=== PATIENT | female | born 1950 | race Two or more races ===

== ENCOUNTER 2024-03-09 13:27 | Outpatient (AMB) | payer MEDICARE, SELFPAY ==
--- NOTE | 2024-03-09 13:36 | ORTHONT_ITS ---
Vital signs 03/09/24 13:37 Height 1.57 m Height Method Stated Weight 70.959 kg Weight Measurement Method Standing Scale BMI 28.8 BP 147/92 H Blood Pressure Source Automatic Cuff Blood Pressure Location Right Upper Arm Position Sitting Respiration 18 Pulse 83 Pulse Source Monitor Temp 97.4 F Temp Source Temporal Artery Scan Pulse Oximetry (%) 96 Oxygen Delivery Method Room Air Med/Allergies Allergies & Medications Allergies No Known Allergies Allergy (Verified 03/09/24 13:38) Medication Reconciliation semaglutide 2 mg/dose (8 mg/3 mL) subcutaneous pen injector (Ozempic) 2 mg subcut QWEEK 11/11/23 [History Confirmed 03/09/24] atorvastatin 10 mg tablet 10 mg PO QDAY 11/22/23 [History Confirmed 03/09/24] empagliflozin 10 mg tablet (Jardiance) 10 mg PO QDAY 11/22/23 [History Confirmed 03/09/24] furosemide 10 mg/mL oral solution 10 mg PO QDAY 11/22/23 [History Confirmed 03/09/24] metformin 500 mg tablet 500 mg PO BID 12/16/23 [History Confirmed 03/09/24] potassium chloride 10 mEq tablet,extended release 10 meq PO DAILY 12/16/23 [History Confirmed 03/09/24] acetaminophen 500 mg tablet (Acetaminophen Extra Strength) 1,000 mg (2 x 500 mg) PO Q6H PRN pain #90 tabs 12/21/23 [Rx Confirmed 03/09/24] aspirin 81 mg tablet,delayed release 81 mg PO BID #60 tabs 12/21/23 [Rx Confirmed 03/09/24] doxycycline hyclate 100 mg tablet 100 mg PO BID #14 tabs 12/21/23 [Rx Confirmed 03/09/24] gabapentin 300 mg capsule 300 mg PO .qhs #30 caps 12/21/23 [Rx Confirmed 03/09/24] sennosides 8.6 mg-docusate sodium 50 mg tablet (Senna-S) 1 tab-cap PO QDAY #30 tabs 12/21/23 [Rx Confirmed 03/09/24] oxycodone 5 mg tablet 5 mg PO Q6H PRN pain #14 tabs 01/03/24 [Rx Confirmed 03/09/24] naproxen 500 mg tablet 500 mg PO BID #30 tabs 03/09/24 [Rx] Subjective Visit Visit for: follow up visit and knee Immunization / Flu Flu Vaccine in the Last 12 Months: No Flu Vaccine Exclusion Criteria: No Exclusion Criteria History of Present Illness Chief complaint: FOLLOW UP VISIT Susanne is doing well 10-week status post total knee replacement. She is very happy with her progress Personal History Occupation: RETIRED Red flag PMH: none Pain Pain level (0-10): 1 Pain duration: COMES AND GOES Pain location: anterior Pain quality: sharp Associated signs & symptoms: none Ambulatory data Ambulatory device: none Treatments Improvement with previous injections: No Improvement with PT: No Improvement with NSAIDS: n/a Review of Systems Review of Systems: All systems negative unless otherwise noted in HPI. Exam Exam Patient is in no acute distress and is cooperative with the examination today. Patient has a normal mood and affect. Breathing is nonlabored. In no respiratory distress. Bilateral extremities were evaluated and demonstrates sensation intact to light touch. Palpable pedal pulses are present. No significant edema is present. Right knee incision is clean dry and intact. Range of motion is 0 to 110 degrees Assessment and Plan Problem List (1) Degenerative arthritis of knee, bilateral: Status: Acute Plan: Patient is doing well status post right total knee replacement. She reports her left knee is bothering her and she is severe arthritis. She would like a cortisone injection of her left knee which I think is reasonable. She also has with right hip trochanteric bursitis and would like an injection. We also going to send her anti-inflammatories Recommend hip bursa cortisone injection as patient would like to proceed with conservative treatment at this time. The risks and benefits of the procedure were reviewed with the patient and patient gave verbal consent to continue with the procedure. Procedure: performed by Dr. Bass Using sterile technique the right hip bursa was thoroughly prepped with alcohol prep, and approximately 1 cc of Kenalog 40 mg/mL and 4 cc of 1% Lidocaine was injected without resistance. The patient tolerated the procedure well. Recommend knee cortisone injection as patient would like to proceed with conservative treatment at this time. The risks and benefits of the procedure were reviewed with the patient and patient gave verbal consent to continue with the procedure. Procedure: performed by Dr. Bass Using sterile technique the left knee was thoroughly prepped with alcohol, and approximately 1 cc of Kenalog 40 mg/mL and 4 cc of 1% lidocaine was injected without resistance into the medial tibial femoral joint space. The patient tolerated the procedure. Advanced Care Planning Discussion Advance care planning discussed with:: patient Office Procedures GNS Level of Care Nursing/Assessment Patient Status: Established Patient Nursing Assessment/Reassesment: Medication Reconciliation, Update PMH in EMR and Vital Signs Coordination of Care: Complex Care and Chronic Disease 1-5, Education Complex Pt/Fam, Consent,records obtained, informed consent, Results/Orders obtained and Staff clarify orders Established Patient Charge Established Patient Point Assignment: 95 Established Patient Point Charge: EP Level 3 (80-115) Surgical Proc/IM SQ injection Major Surgical Procedure: Yes (RIGHT HIP/LEFT KNEE) Medication Given Medication Given Medication Given: Yes Documented Dose Given: 8 Route: Infiitration Medication Given Medication Given Medication Given: Yes Documented Dose Given: 2 Route: Infiitration Office Meds Xylocaine 10 mg/mL (1 %) injection solution Performing Provider: Luiz Bass MD Performing Location: [facility] Administered by: Luiz Bass MD on 03/09/24 14:21 Dose Route Admin Location Dispensed Lot Number Expiration Date FORMERLY NAMED [facility] [employer] 40 mL Infiltration 40 mL [id number] 01/12/27 26161-091-61 [facility] triamcinolone acetonide 40 mg/mL suspension for injection Performing Provider: Luiz Bass MD Performing Location: [facility] Administered by: Luiz Bass MD on 03/09/24 14:21 Dose Route Admin Location Dispensed Lot Number Expiration Date FORMERLY NAMED [facility] [employer] 80 mg Infiltration 2 mL [id number] 12/12/25 [address]-6 [employer] Past Medical History Past Medical History Have you ever been diagnosed with any of the following: Neurological Problems Transient Ischemic Attacks (TIA): No Seizures: No Cardiology Problems Heart Murmur: Yes Hypercholesterolemia: Yes Congestive Heart Failure: No Edema: Yes (left ankle) Hypertension: Yes Respiratory Problems Chronic Obstructive Pulmonary Disease (COPD): No Smoking: Yes Smoking Cessation Counseling: No Smoking Exposure: Yes Stomache/Intestinal Problems Hepatitis: No Obesity: Yes Genital/Urinary Problems Renal Disease: No Reproductive Problems Endometriosis: No Previous Pregnancies: Yes Musculoskeletal Problems Arthritis: Yes Osteoporosis: Yes Fractures: Yes (left ankle, right foot, nose, right wrist) Head,Eye,Nose,Throat Problems Cataracts: Yes Endocrine Problems Diabetes Mellitus Type 1: No Diabetes Mellitus Type 2: Yes Hypothyroidism: No Blood Problems Anemia: No Clotting Problems: No Other Problems Hospitalization: Yes (Sepsis, UTI) Shingles: No Falls: No Blood Transfusions: No Anesthesia Reactions: No Chicken Pox: Yes Measles: Yes Cancer: No Surgical History Total Knee Replacement: Yes
[2024-03-09 13:37] VITALS: BP 147/92; PULSE 83; RESP 18; TEMP 36.3; O2SAT 96; BMI 28.8
== END 2024-03-09 14:06 | disposition home or self-care (01) ==
LOC: HODSRG 13:27
PROVIDERS: PCP Specialist; Referring Provider Specialist; Supervising Provider Orthopaedic Surgery Adult Reconstructive Orthopaedic Surgery; Visit Provider Orthopaedic Surgery Adult Reconstructive Orthopaedic Surgery
DX: M17.0 Bilateral primary osteoarthritis of knee (principal); Z96.651 Presence of right artificial knee joint; M70.61 Trochanteric bursitis, right hip; I10 Essential (primary) hypertension; E78.00 Pure hypercholesterolemia, unspecified
CPT/HCPCS: 20610; 99213; J3301; J3490; G0463

== ENCOUNTER → 2024-04-16 | Outpatient (CLI) | payer MEDICARE, SELFPAY ==
--- NOTE | 2024-04-16 16:00 | XR_ITS ---
Examination: Thyroid sonography complete TECHNIQUE: Multiple high resolution grayscale sonographic images thyroid lobes are carful analysis Exam date and time: April 16, 2024 1559 hours INDICATIONS: Palpable nodule in the neck this month FINDINGS: Right thyroid 5.5 x 1.7 x 2.8 cm Upper pole vascular nodule 14 x 10 x 9 mm Upper pole cyst 3 x 3 mm Lower pole nodule 8 x 6 x 7 mm Isthmus nodule 1.1 x 0.9 x 1.0 cm Left thyroid 5.7 x 2.0 x 2.2 cm Upper pole nodules 7 x 4 x 6 mm, 6 x 4 x 5 mm, 6 x 4 x 7 mm IMPRESSION: Thyroid nodules as above Recommend ultrasound-guided fine-needle aspiration of the vascular upper pole right thyroid nodule 14 x 10 x 9 mm
--- NOTE | 2024-04-16 16:12 | XR_ITS ---
Examination: Right knee 4 views TECHNIQUE: AP oblique lateral axial right knee 4 views Exam date and time: April 16, 2024 1718 hours INDICATIONS: Right knee surgery December 2023 patient fell last week with injury to the knee, knee pain FINDINGS: Total right knee arthroplasty. Satisfactory alignment Moderate osteopenia No fracture or patellar dislocation IMPRESSION: No fracture or dislocation
== END | disposition home or self-care (01) ==
PROVIDERS: PCP Specialist; Referring Provider Specialist; Visit Provider Specialist
DX: E04.2 Nontoxic multinodular goiter (principal); S89.91XA Unspecified injury of right lower leg, initial encounter; W19.XXXA Unspecified fall, initial encounter
CPT/HCPCS: 73564; 76536

== ENCOUNTER → 2024-04-19 | Outpatient (CLI) | payer MEDICARE, SELFPAY ==
--- NOTE | 2024-04-19 | XR_ITS ---
Examination: Lumbar spine, 5 views Technique: Lumbar spine AP, lateral, coned lateral lower lumbar spine, bilateral obliques 5 views Exam date and time: April 19, 2024 1138 hours INDICATIONS: Patient fell 9 days ago with injury to the lower back, lower back pain. FINDINGS: Severe osteopenia Diffuse advanced facet arthropathy Chronic osteoporotic compressions L4 L3 L2 L1 T12 T11 No acute lumbar fracture Diffuse lumbar degenerative disc disease, advanced L5-S1 Prominent lumbar spondylosis IMPRESSION: No acute lumbar fracture
--- NOTE | 2024-04-19 | XR_ITS ---
EXAMINATION: Ankle, right 3 views . Technique: Ankle AP, oblique, lateral 3 views Date and time of exam: April 19, 2024 1138 hours INDICATIONS: Patient fell 9 days ago with injury to the ankle, ankle pain. FINDINGS: Severe osteopenia No acute ankle fracture or dislocation 12 mm plantar bony calcaneal spur Impression: No ankle fracture or dislocation
== END | disposition home or self-care (01) ==
LOC: CDIM 11:04
PROVIDERS: Referring Provider Specialist; Visit Provider Specialist
DX: S39.92XA Unspecified injury of lower back, initial encounter (principal); S99.911A Unspecified injury of right ankle, initial encounter; W19.XXXA Unspecified fall, initial encounter
CPT/HCPCS: 72110; 73610

== ENCOUNTER 2024-04-20 10:19 | Outpatient (AMB) | payer MEDICARE, SELFPAY ==
[2024-04-20 11:08] VITALS: BP 163/84; PULSE 74; RESP 18; TEMP 36.3; O2SAT 96; BMI 33.3
--- NOTE | 2024-04-20 11:08 | PD.ORTHCLVIS ---
Vital signs 04/20/24 11:08 Height 1.57 m Height Method Stated Weight 82.242 kg Weight Measurement Method Standing Scale BMI 33.3 BP 163/84 H Blood Pressure Source Automatic Cuff Blood Pressure Location Right Upper Arm Position Sitting Respiration 18 Pulse 74 Pulse Source Monitor Temp 97.3 F Temp Source Temporal Artery Scan Pulse Oximetry (%) 96 Oxygen Delivery Method Room Air Med/Allergies Allergies & Medications Allergies No Known Allergies Allergy (Verified 04/20/24 11:09) Medication Reconciliation semaglutide 2 mg/dose (8 mg/3 mL) subcutaneous pen injector (Ozempic) 2 mg subcut QWEEK 11/11/23 [History Confirmed 04/20/24] atorvastatin 10 mg tablet 10 mg PO QDAY 11/22/23 [History Confirmed 04/20/24] empagliflozin 10 mg tablet (Jardiance) 10 mg PO QDAY 11/22/23 [History Confirmed 04/20/24] furosemide 10 mg/mL oral solution 10 mg PO QDAY 11/22/23 [History Confirmed 04/20/24] metformin 500 mg tablet 500 mg PO BID 12/16/23 [History Confirmed 04/20/24] potassium chloride 10 mEq tablet,extended release 10 meq PO DAILY 12/16/23 [History Confirmed 04/20/24] acetaminophen 500 mg tablet (Acetaminophen Extra Strength) 1,000 mg (2 x 500 mg) PO Q6H PRN pain #90 tabs 12/21/23 [Rx Confirmed 04/20/24] aspirin 81 mg tablet,delayed release 81 mg PO BID #60 tabs 12/21/23 [Rx Confirmed 04/20/24] doxycycline hyclate 100 mg tablet 100 mg PO BID #14 tabs 12/21/23 [Rx Confirmed 04/20/24] gabapentin 300 mg capsule 300 mg PO .qhs #30 caps 12/21/23 [Rx Confirmed 04/20/24] sennosides 8.6 mg-docusate sodium 50 mg tablet (Senna-S) 1 tab-cap PO QDAY #30 tabs 12/21/23 [Rx Confirmed 04/20/24] oxycodone 5 mg tablet 5 mg PO Q6H PRN pain #14 tabs 01/03/24 [Rx Confirmed 04/20/24] naproxen 500 mg tablet 500 mg PO BID #30 tabs 03/09/24 [Rx Confirmed 04/20/24] Subjective Visit Visit for: follow up visit Immunization / Flu Flu Vaccine in the Last 12 Months: No Flu Vaccine Exclusion Criteria: No Exclusion Criteria History of Present Illness Chief complaint: FOLLOW UP That is a pleasant 73-year-old female who is 4 months status post right total knee replacement. She reports that she had some ankle weakness approximately 1 month ago. The pain has Improved significantly since then. She reports that she had a fall and had weakness with lifting her foot up. She reports that this is gone significantly better. She still working with therapy. She denies any numbness or tingling. She never had any pain in her ankle but reports that it did feel Pain Pain level (0-10): 0 Pain duration: NONE Ambulatory data Ambulatory device: none Treatments Improvement with previous injections: No Improvement with PT: No Improvement with NSAIDS: n/a Review of Systems Review of Systems: All systems negative unless otherwise noted in HPI. Exam Exam Patient is in no acute distress and is cooperative with the examination today. Patient has a normal mood and affect. Breathing is nonlabored. In no respiratory distress. Bilateral extremities were evaluated and demonstrates sensation intact to light touch. Palpable pedal pulses are present. No significant edema is present. Right knee incision is clean dry and intact. Range of motion is 0 to 110 degrees. She has 4-5 ankle dorsiflexion and EHL. Sensations intact to light touch bilaterally in the superficial and deep peroneal nerve distributions Assessment and Plan Problem List (1) Status post total right knee replacement: Status: Acute Plan Patient is a 73-year-old female status post right total knee replacement. 3 weeks ago she had a fall and reported ankle weakness. It sounds like it could have been a foot drop. This has recovered significantly and she has 4-5 strength in EHL as well as ankle dorsiflexion. Sensation is also intact to light touch bilaterally. I have not attempted to get a EMG as her pain has significantly improved as well as her strength and she is intact to touch bilaterally. We recommend continued physical therapy as needed. I will see her for her next visit as originally scheduled Advanced Care Planning Discussion Advance care planning discussed with:: patient Office Procedures GNS Level of Care Nursing/Assessment Patient Status: Established Patient Nursing Assessment/Reassesment: Medication Reconciliation, Update PMH in EMR and Vital Signs Coordination of Care: Complex Care and Chronic Disease 1-5, Education Complex Pt/Fam, Consent,records obtained, informed consent, Lab and Imaging orders, Results/Orders obtained and Staff clarify orders Special Needs: Language special needs Established Patient Charge Established Patient Point Assignment: 110 Established Patient Point Charge: EP Level 3 (80-115) Past Medical History Past Medical History Have you ever been diagnosed with any of the following: Neurological Problems Transient Ischemic Attacks (TIA): No Seizures: No Cardiology Problems Heart Murmur: Yes Hypercholesterolemia: Yes Congestive Heart Failure: No Edema: Yes (left ankle) Hypertension: Yes Respiratory Problems Chronic Obstructive Pulmonary Disease (COPD): No Smoking: Yes Smoking Cessation Counseling: No Smoking Exposure: Yes Stomache/Intestinal Problems Hepatitis: No Obesity: Yes Genital/Urinary Problems Renal Disease: No Reproductive Problems Endometriosis: No Previous Pregnancies: Yes Musculoskeletal Problems Arthritis: Yes Osteoporosis: Yes Fractures: Yes (left ankle, right foot, nose, right wrist) Head,Eye,Nose,Throat Problems Cataracts: Yes Endocrine Problems Diabetes Mellitus Type 1: No Diabetes Mellitus Type 2: Yes Hypothyroidism: No Blood Problems Anemia: No Clotting Problems: No Other Problems Hospitalization: Yes (Sepsis, UTI) Shingles: No Falls: No Blood Transfusions: No Anesthesia Reactions: No Chicken Pox: Yes Measles: Yes Cancer: No Surgical History Total Knee Replacement: Yes
== END 2024-04-20 11:27 | disposition home or self-care (01) ==
LOC: HODSRG 10:19
PROVIDERS: PCP Specialist; Referring Provider Specialist; Supervising Provider Orthopaedic Surgery Adult Reconstructive Orthopaedic Surgery; Visit Provider Orthopaedic Surgery Adult Reconstructive Orthopaedic Surgery
DX: Z96.651 Presence of right artificial knee joint (principal); I10 Essential (primary) hypertension; E78.00 Pure hypercholesterolemia, unspecified
CPT/HCPCS: 99213; G0463

== ENCOUNTER 2024-05-15 12:55 | Outpatient (AMB) | payer MEDICARE, SELFPAY ==
[2024-05-15 13:06] VITALS: BP 138/87; PULSE 84; RESP 18; TEMP 36.6; O2SAT 98; BMI 28.0
--- NOTE | 2024-05-15 13:06 | PD.ORTHCLVIS ---
Vital signs 05/15/24 13:06 Height 1.57 m Height Method Measured Weight 69.428 kg Weight Measurement Method Standing Scale BMI 28.0 BP 138/87 H Blood Pressure Source Automatic Cuff Blood Pressure Location Right Upper Arm Position Sitting Respiration 18 Pulse 84 Pulse Source Monitor Temp 97.8 F Temp Source Temporal Artery Scan Pulse Oximetry (%) 98 Oxygen Delivery Method Room Air Med/Allergies Allergies & Medications Allergies No Known Allergies Allergy (Verified 05/15/24 13:07) Medication Reconciliation semaglutide 2 mg/dose (8 mg/3 mL) subcutaneous pen injector (Ozempic) 2 mg subcut QWEEK 11/11/23 [History Confirmed 05/15/24] atorvastatin 10 mg tablet 10 mg PO QDAY 11/22/23 [History Confirmed 05/15/24] empagliflozin 10 mg tablet (Jardiance) 10 mg PO QDAY 11/22/23 [History Confirmed 05/15/24] furosemide 10 mg/mL oral solution 10 mg PO QDAY 11/22/23 [History Confirmed 05/15/24] metformin 500 mg tablet 500 mg PO BID 12/16/23 [History Confirmed 05/15/24] potassium chloride 10 mEq tablet,extended release 10 meq PO DAILY 12/16/23 [History Confirmed 05/15/24] acetaminophen 500 mg tablet (Acetaminophen Extra Strength) 1,000 mg (2 x 500 mg) PO Q6H PRN pain #90 tabs 12/21/23 [Rx Confirmed 05/15/24] aspirin 81 mg tablet,delayed release 81 mg PO BID #60 tabs 12/21/23 [Rx Confirmed 05/15/24] doxycycline hyclate 100 mg tablet 100 mg PO BID #14 tabs 12/21/23 [Rx Confirmed 05/15/24] gabapentin 300 mg capsule 300 mg PO .qhs #30 caps 12/21/23 [Rx Confirmed 05/15/24] sennosides 8.6 mg-docusate sodium 50 mg tablet (Senna-S) 1 tab-cap PO QDAY #30 tabs 12/21/23 [Rx Confirmed 05/15/24] oxycodone 5 mg tablet 5 mg PO Q6H PRN pain #14 tabs 01/03/24 [Rx Confirmed 05/15/24] naproxen 500 mg tablet 500 mg PO BID #30 tabs 03/09/24 [Rx Confirmed 05/15/24] Exam Exam Patient is in no acute distress and is cooperative with the examination today. Patient has a normal mood and affect. Breathing is nonlabored. In no respiratory distress. Bilateral extremities were evaluated and demonstrates sensation intact to light touch. Palpable pedal pulses are present. No significant edema is present. Right knee incision is clean dry and intact. Range of motion is 0 to 110 degrees. She has 4-5 ankle dorsiflexion and EHL. Sensations intact to light touch bilaterally in the superficial and deep peroneal nerve distributions Assessment and Plan Problem List (1) Status post total right knee replacement: Status: Acute Plan Patient is a 73-year-old female status post right total knee replacement. 7 weeks ago she had a fall and reported ankle weakness. We will obtain an EMG as she has 4 out of 5 dorsiflexion. I will also rule out a spine source with an MRI. I am referring her to a neurologist for an EMG given the peculiar findings. Fortunately she has no foot drop but there is ankle weakness. It thus seems very bizarre and we will thus work it up. We will see her in approximately 3 months for routine follow-up Advanced Care Planning Discussion Advance care planning discussed with:: patient Office Procedures GNS Level of Care Nursing/Assessment Patient Status: Established Patient Nursing Assessment/Reassesment: Medication Reconciliation, Update PMH in EMR and Vital Signs Coordination of Care: Complex Care and Chronic Disease 1-5, Consent,records obtained, informed consent, Education Simp Pt/Fam and Staff clarify orders Established Patient Charge Established Patient Point Assignment: 85 Established Patient Point Charge: EP Level 3 (80-115) MA Intake Visit Data Collection New Patient or Established: Established Patient (seen at [facility] within 3 years) Seen by Clinical Staff ONLY (RN/MA): No Credit Collections Rep Required: No PCP or OBGYN visit in last 3 months: Yes Do You Feel Safe at Home: Yes Authorities Contacted: N/A Questionairres Past Medical History Past Medical History Have you ever been diagnosed with any of the following: Neurological Problems Transient Ischemic Attacks (TIA): No Seizures: No Cardiology Problems Heart Murmur: Yes Hypercholesterolemia: Yes Congestive Heart Failure: No Edema: Yes (left ankle) Hypertension: Yes Respiratory Problems Chronic Obstructive Pulmonary Disease (COPD): No Smoking: Yes Smoking Cessation Counseling: No Smoking Exposure: Yes Stomache/Intestinal Problems Hepatitis: No Obesity: Yes Genital/Urinary Problems Renal Disease: No Reproductive Problems Endometriosis: No Previous Pregnancies: Yes Musculoskeletal Problems Arthritis: Yes Osteoporosis: Yes Fractures: Yes (left ankle, right foot, nose, right wrist) Head,Eye,Nose,Throat Problems Cataracts: Yes Endocrine Problems Diabetes Mellitus Type 1: No Diabetes Mellitus Type 2: Yes Hypothyroidism: No Blood Problems Anemia: No Clotting Problems: No Other Problems Hospitalization: Yes (Sepsis, UTI) Shingles: No Falls: No Blood Transfusions: No Anesthesia Reactions: No Chicken Pox: Yes Measles: Yes Cancer: No Surgical History Total Knee Replacement: Yes Subjective Immunization / Flu Flu Vaccine in the Last 12 Months: Yes Flu Vaccine Exclusion Criteria: Already Received History of Present Illness Chief complaint: Right knee replacement Susanne is a pleasant 73-year-old female who is almost 5 months out from a right total knee replacement. She did well initially but approximately 2 months after surgery she reported there was diminished weakness in her ankle. She was worried that she had a foot drop. She has since then to regain motion. She has no difficulty dorsiflexing but there is still some weakness. She denies any sensory deficits. Review of Systems Review of Systems: All systems negative unless otherwise noted in HPI.
== END 2024-05-15 13:13 | disposition home or self-care (01) ==
LOC: HODSRG 12:55
PROVIDERS: PCP Specialist; Referring Provider Specialist; Supervising Provider Orthopaedic Surgery Adult Reconstructive Orthopaedic Surgery; Visit Provider Orthopaedic Surgery Adult Reconstructive Orthopaedic Surgery
DX: Z96.651 Presence of right artificial knee joint (principal); I10 Essential (primary) hypertension; E78.00 Pure hypercholesterolemia, unspecified
CPT/HCPCS: 99213; G0463

== ENCOUNTER → 2024-06-06 | Outpatient (CLI) | payer MEDICARE, SELFPAY ==
[2024-06-06 08:37] LABS: Basophils # (Auto) 0.1 Thou/mm3 (0.0-0.2); Basophils % (Auto) 1 % (0-2.5); Eosinophils # (Auto) 0.2 Thou/mm3 (0.0-0.5); Eosinophils % (Auto) 2 % (0-10); Hematocrit 43.3 % (36.0-46.0); Hemoglobin 14.9 g/dL (12.0-16.0); Immature Granulocytes % (Auto) 0 % (0-0); Immature Granulocytes Auto 0.03 Thou/mm3 (0.00-0.00); Lymphocytes # (Auto) 2.9 Thou/mm3 (1.0-4.8); Lymphocytes % (Auto) 30 % (10-50); Mean Corpuscular HGB Conc 34.4 g/dl (31.0-37.0); Mean Corpuscular Hemoglobin 30.8 pg (25.0-35.0); Mean Corpuscular Volume 90 fL (80-100); Monocytes # (Auto) 0.7 Thou/mm3 (0.0-0.8); Monocytes % (Auto) 8 % (0-12); Neutrophils # (Auto) 5.5 Thou/mm3 (1.8-7.7); Neutrophils % (Auto) 58 % (37-80); Nucleated Red Blood Cell % 0 /100 WBC (0); Platelet Count 293 Thou/mm3 (140-440); RDW Standard Deviation 47.6 fL (36.4-46.3); Red Blood Count 4.84 Miln/mm3 (4.00-5.20); White Blood Count 9.4 Thou/mm3 (3.6-11.0)
--- NOTE | 2024-06-06 09:30 | XR_ITS ---
Examination: Ultrasound-guided fine needle percutaneous aspiration thyroid nodule, upper pole right thyroid nodule. Thyroid sonography, limited Exam date and time: June 06, 2024 1042 hours INDICATIONS: Thyroid sonogram April 16, 2024 of her pole vascular right thyroid nodule 14 x 10 x 9 mm. Technique: A timeout was completed verifying correct patient, procedure, site, positioning and special equipment if applicable. The patient was placed in supine position for the thyroid fine needle percutaneous aspiration The patient's right neck was prepped and draped in sterile fashion. Maximum barrier sterile technique, hand hygiene, ultrasound sterile technique. 1% lidocaine was used to anesthetize the skin and subcutaneous tissues to the patient's right thyroid nodule. Multiple fine needle aspirations were performed and multiple thyroid specimens placed in preservative according to the [facility] protocol. Specimens appears satisfactory. The attending radiologist was present for the entire procedure. Estimated blood loss 3 cc. The patient tolerated the procedure well and there were no complications. Impression: Successful ultrasound-guided fine-needle percutaneous aspiration thyroid nodule, upper pole right thyroid nodule.
[2024-06-06 10:29] LABS: INR 0.9 (0.9-1.3); Prothrombin Time 9.9 Seconds (9.0-12.2)
== END | disposition home or self-care (01) ==
PROVIDERS: Radiology Diagnostic Radiology; PCP Specialist; Referring Provider Specialist; Visit Provider Specialist
DX: E04.1 Nontoxic single thyroid nodule (principal)
CPT/HCPCS: 10005; 36415; 85025; 85610; 85730

== ENCOUNTER → 2024-06-22 | Outpatient (CLI) | payer MEDICARE, SELFPAY ==
[2024-06-21 15:10] LABS: Albumin, Serum 4.6 gm/dL (3.4-4.8); Anion Gap 5 (7-16); BUN/Creatinine Ratio 8 Ratio (12-20); Blood Urea Nitrogen 9 mg/dL (9-23); Calcium 10.3 mg/dL (8.3-10.6); Calcium (Corrected) 10.3 mg/dL (8.5-10.1); Carbon Dioxide 28.2 mMol/L (20.0-31.0); Chloride 108 mMol/L (98-107); Creatinine (Component) 1.1 mg/dL (0.6-1.3); Glucose 138 mg/dL (74-106); Osmolality,Calculated 281 (275-295); Phosphorous 3.8 mg/dL (2.4-5.1); Potassium 5.4 mMol/L (3.4-5.1); Sodium 141 mMol/L (136-145); eGFR 53 See Note
--- NOTE | 2024-06-22 09:45 | XR_ITS ---
Examination: MRI lumbar spine, without intravenous contrast. MRI lumbar spine , with intravenous contrast. Exam date and time: June 22, 2024 1046 hours INDICATIONS: Right-sided lower back pain beginning 2 months ago, weakness in the right leg right foot after falling Technique: Multiple axial, sagittal and coronal images of the lumbar spine have been obtained with the Siemens high-resolution 1.5 Cammie MRI scanner. Images obtained included T2 weighted fat suppressed sagittal sections, TR 3500, TE 46, T2 weighted coronal fat suppressed images, TR 3050, TE 84, T2-weighted transverse fat suppressed images, TR 30-60, TE 63, proton density transverse images, TR 4720, TE 46, and T1 weighted coronal images, TR 560, TE 13. Axial, sagittal and coronal images are obtained post intravenous injection 15 cc gadolinium. Findings: Severe chronic compression L1 vertebral body Grade 1 anterolisthesis L5 on S1, 7 mm No acute lumbar fracture Adequate marrow signal lumbar vertebral bodies Postcontrast images demonstrate no abnormal osseous epidural conus medullaris or cauda equina enhancement L5-S1 bilateral 4 mm foraminal disc bulges but no ganglionic compression L4-L5 4 mm central and 6 mm left 4 mm right foraminal disc bulges L3-L4 4 mm central disc bulge L2-L3 no disc protrusion L1-2 no disc protrusion IMPRESSION: Severe chronic compression fracture L1 Grade 1 anterolisthesis L5 on S1 L5-S1 bilateral foraminal disc bulges but no ganglionic compression L4-L5 4 mm central 6 mm left 4 mm right foraminal disc bulges no ganglionic compression L3-L4 4 mm central lumbar disc bulge
== END | disposition home or self-care (01) ==
LOC: SMRI 09:19
PROVIDERS: PCP Specialist; Referring Provider Orthopaedic Surgery Adult Reconstructive Orthopaedic Surgery; Visit Provider Orthopaedic Surgery Adult Reconstructive Orthopaedic Surgery
DX: M48.56XA Collapsed vertebra, not elsewhere classified, lumbar region, initial encounter for fracture (principal); M51.379 Other intervertebral disc degeneration, lumbosacral region without mention of lumbar back pain or lower extremity pain; M51.369 Other intervertebral disc degeneration, lumbar region without mention of lumbar back pain or lower extremity pain; M17.0 Bilateral primary osteoarthritis of knee
CPT/HCPCS: 36415; 72158; 80069; A9579

== ENCOUNTER → 2024-08-08 | Outpatient (CLI) | payer MEDICARE, SELFPAY ==
--- NOTE | 2024-08-08 11:00 | XR_ITS ---
Examination: Screening digital mammography, bilateral Computer aided detection 3-D breast Tomosynthesis, bilateral Date and time of exam: August 08, 2024 1052 hours Compared to mammograms dating to April 27, 2021 Indication: Screening Technique: Nonmagnified MLO, CC views of the breasts to been obtained, reconstructed from 3-D Tomosynthesis images. R2 computer aided detection program utilized for evaluation of suspicious masses and/or abnormal calcifications. 3-D Tomosynthesis images obtained. Findings: Scattered areas of fibroglandular density Stable focal asymmetry upper outer left breast Benign calcifications No interval suspicious masses Breast biopsy marker slightly upper left breast Impression: BI-RADS category II: Benign Findings. Recommend 1 year follow-up mammogram.
== END | disposition home or self-care (01) ==
LOC: CDIM 10:41
PROVIDERS: PCP Specialist; Referring Provider Specialist; Visit Provider Specialist
DX: Z12.31 Encounter for screening mammogram for malignant neoplasm of breast (principal); R92.323 Mammographic fibroglandular density, bilateral breasts; R92.1 Mammographic calcification found on diagnostic imaging of breast
CPT/HCPCS: 77063; 77067

== ENCOUNTER 2024-08-09 12:56 | Outpatient (AMB) | payer MEDICARE, SELFPAY ==
[2024-08-09 13:05] VITALS: BP 135/83; PULSE 67; RESP 19; TEMP 36.1; O2SAT 97; BMI 27.8
--- NOTE | 2024-08-09 13:05 | ORTHONT_ITS ---
Vital signs 08/09/24 13:05 Height 1.57 m Height Method Stated Weight 68.691 kg Weight Measurement Method Standing Scale BMI 27.8 BP 135/83 H Blood Pressure Source Automatic Cuff Blood Pressure Location Right Upper Arm Position Sitting Respiration 19 Pulse 67 Pulse Source Monitor Temp 96.9 F Temp Source Temporal Artery Scan Pulse Oximetry (%) 97 Oxygen Delivery Method Room Air Med/Allergies Allergies & Medications Allergies No Known Allergies Allergy (Verified 08/09/24 13:06) Medication Reconciliation semaglutide 2 mg/dose (8 mg/3 mL) subcutaneous pen injector (Ozempic) 2 mg subcut QWEEK 11/11/23 [History Confirmed 08/09/24] atorvastatin 10 mg tablet 10 mg PO QDAY 11/22/23 [History Confirmed 08/09/24] empagliflozin 10 mg tablet (Jardiance) 10 mg PO QDAY 11/22/23 [History Confirmed 08/09/24] furosemide 10 mg/mL oral solution 10 mg PO QDAY 11/22/23 [History Confirmed 08/09/24] metformin 500 mg tablet 500 mg PO BID 12/16/23 [History Confirmed 08/09/24] potassium chloride 10 mEq tablet,extended release 10 meq PO DAILY 12/16/23 [History Confirmed 08/09/24] acetaminophen 500 mg tablet (Acetaminophen Extra Strength) 1,000 mg (2 x 500 mg) PO Q6H PRN pain #90 tabs 12/21/23 [Rx Confirmed 08/09/24] aspirin 81 mg tablet,delayed release 81 mg PO BID #60 tabs 12/21/23 [Rx Confirmed 08/09/24] doxycycline hyclate 100 mg tablet 100 mg PO BID #14 tabs 12/21/23 [Rx Confirmed 08/09/24] gabapentin 300 mg capsule 300 mg PO .qhs #30 caps 12/21/23 [Rx Confirmed 08/09/24] sennosides 8.6 mg-docusate sodium 50 mg tablet (Senna-S) 1 tab-cap PO QDAY #30 tabs 12/21/23 [Rx Confirmed 08/09/24] oxycodone 5 mg tablet 5 mg PO Q6H PRN pain #14 tabs 01/03/24 [Rx Confirmed 08/09/24] naproxen 500 mg tablet 500 mg PO BID #60 tabs 08/09/24 [Rx] Exam Exam Patient is in no acute distress and is cooperative with the examination today. Patient has a normal mood and affect. Breathing is nonlabored. In no respiratory distress. Bilateral extremities were evaluated and demonstrates sensation intact to light touch. Palpable pedal pulses are present. No significant edema is present. Right knee incision is clean dry and intact. Range of motion is 0 to 110 degrees. She has 4-5 ankle dorsiflexion and EHL. Sensations intact to light touch bilaterally in the superficial and deep peroneal nerve distributions Assessment and Plan Problem List (1) Status post total right knee replacement: Status: Acute Plan Patient is a 73-year-old female status post right total knee replacement. 7 weeks ago she had a fall and reported ankle weakness. All her symptoms have disappeared and she reports that she is doing well. We will see her in approximately 1 to 2 years. She has no weakness at all. Advanced Care Planning Discussion Advance care planning discussed with:: patient Office Procedures GNS Level of Care Nursing/Assessment Patient Status: Established Patient Nursing Assessment/Reassesment: Medication Reconciliation, Update PMH in EMR and Vital Signs Coordination of Care: Complex Care/Chronic Disease 5 or more, Education Complex Pt/Fam, Consent,records obtained, informed consent and Staff clarify orders Established Patient Charge Established Patient Point Assignment: 100 Established Patient Point Charge: EP Level 3 (80-115) MA Intake Visit Data Collection New Patient or Established: Established Patient (seen at [facility] within 3 years) Reason for Visit:: 3 MONTH FOLLOW UP KNEE Seen by Clinical Staff ONLY (RN/MA): No Marking Room Supervisor Required: No PCP or OBGYN visit in last 3 months: Yes Do You Feel Safe at Home: Yes Authorities Contacted: N/A Questionairres Past Medical History Past Medical History Have you ever been diagnosed with any of the following: Neurological Problems Transient Ischemic Attacks (TIA): No Seizures: No Cardiology Problems Heart Murmur: Yes Hypercholesterolemia: Yes Congestive Heart Failure: No Edema: Yes (left ankle) Hypertension: Yes Respiratory Problems Chronic Obstructive Pulmonary Disease (COPD): No Smoking: Yes Smoking Cessation Counseling: No Smoking Exposure: Yes Stomache/Intestinal Problems Hepatitis: No Obesity: Yes Genital/Urinary Problems Renal Disease: No Reproductive Problems Endometriosis: No Previous Pregnancies: Yes Musculoskeletal Problems Arthritis: Yes Osteoporosis: Yes Fractures: Yes (left ankle, right foot, nose, right wrist) Head,Eye,Nose,Throat Problems Cataracts: Yes Endocrine Problems Diabetes Mellitus Type 1: No Diabetes Mellitus Type 2: Yes Hypothyroidism: No Blood Problems Anemia: No Clotting Problems: No Other Problems Hospitalization: Yes (Sepsis, UTI) Shingles: No Falls: No Blood Transfusions: No Anesthesia Reactions: No Chicken Pox: Yes Measles: Yes Cancer: No Surgical History Total Knee Replacement: Yes Subjective Visit Visit for: follow up visit and knee Immunization / Flu Flu Vaccine in the Last 12 Months: Yes Flu Vaccine Exclusion Criteria: Already Received History of Present Illness Chief complaint: 3 MONTH FOLLOW KNEE Susanne is a pleasant 73-year-old female who is almost 7 months out from a right total knee replacement. She did well initially but approximately 2 months after surgery she reported there was diminished weakness in her ankle. She was worried that she had a foot drop. She has since then to regain motion. She has no difficulty dorsiflexing but there is still some weakness. She denies any sensory deficits. Personal History Red flag PMH: none BMI Counceling provided: Yes Pain Pain level (0-10): 0 Associated signs & symptoms: none Ambulatory data Ambulatory device: none Treatments Improvement with PT: Yes Improvement with NSAIDS: yes Review of Systems Review of Systems: All systems negative unless otherwise noted in HPI.
== END 2024-08-09 13:12 | disposition home or self-care (01) ==
LOC: HODSRG 12:56
PROVIDERS: PCP Specialist; Referring Provider Specialist; Supervising Provider Orthopaedic Surgery Adult Reconstructive Orthopaedic Surgery; Visit Provider Orthopaedic Surgery Adult Reconstructive Orthopaedic Surgery
DX: Z96.651 Presence of right artificial knee joint (principal); I10 Essential (primary) hypertension; E78.00 Pure hypercholesterolemia, unspecified
CPT/HCPCS: 99213; G0463

== ENCOUNTER → 2024-12-11 | Outpatient (CLI) | payer MEDICARE, SELFPAY ==
--- NOTE | 2024-12-11 | XR_ITS ---
Examination: Ultrasound soft tissue neck TECHNIQUE: Grayscale sonographic images soft tissue neck Date and time: December 11, 2024, 1204 hrs INDICATIONS: Patient states bilateral neck lumps noticed beginning 3 weeks ago FINDINGS: Multiple bilateral soft tissue neck lymph nodes Right neck largest lymph nodes largest 15 x 8 mm, 10 x 5 mm, 9 x 5 mm, 14 x 5 mm Left neck lymph nodes, the largest 8 x 7 mm, 8 x 6 mm, 7 x 5 mm IMPRESSION: Significant cervical lymphadenopathy, consider correlation with CT soft tissue neck post intravenous contrast follow-up
--- NOTE | 2024-12-11 11:15 | XR_ITS ---
Examination: Thyroid sonography complete TECHNIQUE: Grayscale sonographic images thyroid lobes Date and time: December 11, 2024 1155 hours Comparison April 16, 2024 INDICATIONS: History thyroid nodules, upper right thyroid lobe 14 mm lower right thyroid lobe 8 mm, isthmus nodule 11 mm, upper pole nodules left thyroid 7 mm, 6 mm, 7 mm, patient states bilateral neck lump noticed beginning 3 weeks ago FINDINGS: Right thyroid 6.0 cm Lower pole nodule 13 x 10 mm, 8 x 8 mm Left thyroid 4.5 cm Upper pole nodule 7 x 7 mm, upper pole cyst 5 x 5 mm IMPRESSION: Thyroid nodules as above
== END | disposition home or self-care (01) ==
PROVIDERS: PCP Specialist; Referring Provider Specialist; Visit Provider Specialist
DX: R59.0 Localized enlarged lymph nodes (principal); E04.2 Nontoxic multinodular goiter
CPT/HCPCS: 76536

== ENCOUNTER → 2024-12-26 | Outpatient (CLI) | payer MEDICARE, SELFPAY ==
--- NOTE | 2024-12-26 15:00 | XR_ITS ---
Examination: CT soft tissue neck, with intravenous contrast. 2-D coronal reconstructions. 2-D sagittal reconstructions. Date and time of exam :December 26, 2024 1551 hours INDICATIONS: Diagnosis nontoxic multinodular goiter, Limited to the neck one month. CTDI: vol (mGy):12.4 DLP: (mGycm):303 Technique: 1.25 mm axial sections of the neck of the obtained. Coronal and sagittal reconstructions have been obtained. Intravenous contrast administered 50 cc Isovue-370. Low dose protocols were performed. One or more of the following dose reduction techniques were used; automated exposure control, adjustment of the mA and/or KV according to patient size, use of iterative reconstruction technique. Findings: Symmetrical nasopharynx oropharynx Supraglottic region unremarkable The larynx appears normal Bilateral thyromegaly, right thyroid lobe 5 mm, 4 mm nodules Normal epiglottis Prominent osteopenia Lung apices clear IMPRESSION: Bilateral thyromegaly, right thyroid lobe 5 mm, 4 mm nodules
== END | disposition home or self-care (01) ==
LOC: SCAT 14:52
PROVIDERS: PCP Specialist; Referring Provider Specialist; Visit Provider Specialist
DX: E01.0 Iodine-deficiency related diffuse (endemic) goiter (principal)
CPT/HCPCS: 70491; A4649; Q9967

== ENCOUNTER 2025-02-12 13:50 | Outpatient (AMB) | payer MEDICARE, SELFPAY ==
[2025-02-12 13:57] VITALS: BP 123/74; PULSE 81; RESP 16; TEMP 35.5; O2SAT 96; BMI 28.1
--- NOTE | 2025-02-12 13:57 | ORTHONT_ITS ---
Vital signs 02/12/25 13:57 Height 1.57 m Height Method Stated Weight 69.428 kg Weight Measurement Method Standing Scale BMI 28.1 BP 123/74 Blood Pressure Source Automatic Cuff Blood Pressure Location Right Upper Arm Position Sitting Respiration 16 Pulse 81 Pulse Source Monitor Temp 96 F L Temp Source Temporal Artery Scan Pulse Oximetry (%) 96 Oxygen Delivery Method Room Air Med/Allergies Allergies & Medications Allergies No Known Allergies Allergy (Verified 02/12/25 13:58) Medication Reconciliation semaglutide 2 mg/dose (8 mg/3 mL) subcutaneous pen injector (Ozempic) 2 mg subcut QWEEK 11/11/23 [History Confirmed 02/12/25] atorvastatin 10 mg tablet 10 mg PO QDAY 11/22/23 [History Confirmed 02/12/25] empagliflozin 10 mg tablet (Jardiance) 10 mg PO QDAY 11/22/23 [History Confirmed 02/12/25] furosemide 10 mg/mL oral solution 10 mg PO QDAY 11/22/23 [History Confirmed 02/12/25] metformin 500 mg tablet 500 mg PO BID 12/16/23 [History Confirmed 02/12/25] potassium chloride 10 mEq tablet,extended release 10 meq PO DAILY 12/16/23 [History Confirmed 02/12/25] acetaminophen 500 mg tablet (Acetaminophen Extra Strength) 1,000 mg (2 x 500 mg) PO Q6H PRN pain #90 tabs 12/21/23 [Rx Confirmed 02/12/25] aspirin 81 mg tablet,delayed release 81 mg PO BID #60 tabs 12/21/23 [Rx Confirmed 02/12/25] doxycycline hyclate 100 mg tablet 100 mg PO BID #14 tabs 12/21/23 [Rx Confirmed 02/12/25] gabapentin 300 mg capsule 300 mg PO .qhs #30 caps 12/21/23 [Rx Confirmed 02/12/25] sennosides 8.6 mg-docusate sodium 50 mg tablet (Senna-S) 1 tab-cap PO QDAY #30 tabs 12/21/23 [Rx Confirmed 02/12/25] oxycodone 5 mg tablet 5 mg PO Q6H PRN pain #14 tabs 01/03/24 [Rx Confirmed 02/12/25] naproxen 500 mg tablet 500 mg PO BID #60 tabs 08/09/24 [Rx Confirmed 02/12/25] Exam Exam Patient is in no acute distress and is cooperative with the examination today. Patient has a normal mood and affect. Breathing is nonlabored. In no respiratory distress. Bilateral extremities were evaluated and demonstrates sensation intact to light touch. Palpable pedal pulses are present. No significant edema is present. Right knee incision is clean dry and intact. Range of motion is 0 to 110 degrees. She has 4-5 ankle dorsiflexion and EHL. Sensations intact to light touch bilaterally in the superficial and deep peroneal nerve distributions Assessment and Plan Problem List (1) Status post total right knee replacement: Status: Acute Plan: Patient is a 74-year-old female who is status post right total knee replacement. She is doing well. She has minimal pain. She has no neurologic deficits. She is very happy and will see her in approximately 1 to 2 years. Advanced Care Planning Discussion Advance care planning discussed with:: patient Office Procedures GNS Level of Care Nursing/Assessment Patient Status: Established Patient Nursing Assessment/Reassesment: Medication Reconciliation, Update PMH in EMR and Vital Signs Coordination of Care: Complex Care and Chronic Disease 1-5, Education Complex Pt/Fam, Consent,records obtained, informed consent, Results/Orders obtained and Staff clarify orders Established Patient Charge Established Patient Point Assignment: 95 Established Patient Point Charge: EP Level 3 (80-115) MA Intake Visit Data Collection New Patient or Established: Established Patient (seen at [facility] within 3 years) Reason for Visit:: F/U KNEE Seen by Clinical Staff ONLY (RN/MA): No Verbal consent obtained for Telemed visit?: No [employer] Required: No PCP or OBGYN visit in last 3 months: Yes Hx Now: No Do You Feel Safe at Home: Yes Authorities Contacted: N/A Questionairres Past Medical History Past Medical History Have you ever been diagnosed with any of the following: Neurological Problems Transient Ischemic Attacks (TIA): No Seizures: No Cardiology Problems Heart Murmur: Yes Hypercholesterolemia: Yes Congestive Heart Failure: No Edema: Yes (left ankle) Hypertension: Yes Respiratory Problems Chronic Obstructive Pulmonary Disease (COPD): No Smoking: Yes Smoking Cessation Counseling: No Smoking Exposure: Yes Stomache/Intestinal Problems Hepatitis: No Obesity: Yes Genital/Urinary Problems Renal Disease: No Reproductive Problems Endometriosis: No Previous Pregnancies: Yes Musculoskeletal Problems Arthritis: Yes Osteoporosis: Yes Fractures: Yes (left ankle, right foot, nose, right wrist) Head,Eye,Nose,Throat Problems Cataracts: Yes Endocrine Problems Diabetes Mellitus Type 1: No Diabetes Mellitus Type 2: Yes Hypothyroidism: No Blood Problems Anemia: No Clotting Problems: No Other Problems Hospitalization: Yes (Sepsis, UTI) Shingles: No Falls: No Blood Transfusions: No Anesthesia Reactions: No Chicken Pox: Yes Measles: Yes Cancer: No Surgical History Total Knee Replacement: Yes Subjective Visit Visit for: follow up visit and knee Immunization / Flu Flu Vaccine in the Last 12 Months: No Flu Vaccine Exclusion Criteria: No Exclusion Criteria History of Present Illness Chief complaint: 6 MONTH FOLLOW UP Susanne is a pleasant 73-year-old female who is almost 13 months out from a right total knee replacement. She did well initially but approximately 2 months after surgery she reported there was diminished weakness in her ankle. She was worried that she had a foot drop. She has since then to regain motion. She has no difficulty dorsiflexing but there is still some weakness. She denies any sensory deficits. She had an MRI that demonstrated an L1 compression fracture. She has minimal pain at all right now Personal History Occupation: RETIRED Red flag PMH: none BMI Counceling provided: No Pain Pain level (0-10): 0 Pain duration: NONE Associated signs & symptoms: none Ambulatory data Ambulatory device: none Treatments Improvement with previous injections: No Improvement with PT: No Improvement with NSAIDS: no Review of Systems Review of Systems: All systems negative unless otherwise noted in HPI.
--- NOTE | 2025-02-12 13:58 | XR_ITS ---
Examination: Bilateral AP knees single view Right knee PA lateral axial 3 views TECHNIQUE: Bilateral AP knees standing single view Right knee PA standing flexion, right knee standing lateral, axial right knee 3 views total 4 views Date and time: February 12, 2025, 1412 hours INDICATIONS: Right knee pain beginning 2 months ago. FINDINGS: Total right knee arthroplasty. Satisfactory alignment. No loosening of the prosthetic components. No patellar dislocation Moderate to advanced narrowing medial joint space left knee No fracture IMPRESSION: Total right knee arthroplasty with satisfactory alignment
== END 2025-02-12 14:02 | disposition home or self-care (01) ==
LOC: HODSRG 13:50
PROVIDERS: PCP Specialist; Referring Provider Specialist; Supervising Provider Orthopaedic Surgery Adult Reconstructive Orthopaedic Surgery; Visit Provider Orthopaedic Surgery Adult Reconstructive Orthopaedic Surgery
DX: Z96.651 Presence of right artificial knee joint (principal); I10 Essential (primary) hypertension; E78.00 Pure hypercholesterolemia, unspecified; E11.9 Type 2 diabetes mellitus without complications; E66.9 Obesity, unspecified; Z68.28 Body mass index [BMI] 28.0-28.9, adult
CPT/HCPCS: 73564; 99213; G0463